=== PATIENT | female | born 1980 | race Caucasian/White ===

== ENCOUNTER 2018-05-10 17:51 | Emergency (ER) | payer BC ==
[2018-05-10 18:24] VITALS: BP 121/94; PULSE 104; RESP 16; TEMP 99.3; O2SAT 99
--- NOTE | 2018-05-10 18:30 | PD ---
HPI Chief Complaint: Headache Time Seen by Provider: 18:29 Travel History International Travel<30 days: No Contact w/Intl Traveler<30days: No Traveled to known affect area: No History of Present Illness HPI 37-year-old female presents emergency department for evaluation of a pain in the left posterior head. Patient states that it was there since yesterday. Is more of an ache. Mild in severity. It is not generalized. It is not associated with any nausea or vomiting. Patient states yesterday while in the shower she did have to sit down because she felt like the room was spinning, but this was brief and subsided on its own. It has not happened again. She is not certain if they are related. She does have history of cavernous angioma. She is followed by neurology and a specialist in [place]. She denies any focal deficits or weakness. She denies any visual changes. She has no other symptoms to report at this time. [facility] Past Medical History Headaches: Yes Social History Tobacco Use: No Allergies-Medications (Allergen,Severity, Reaction): Coded Allergies: No Known Allergies (Unverified , 05/10/18) Reported Meds & Prescriptions Reported Meds & Active Scripts Active Reported Zonegran (Zonisamide) 100 Mg Cap 200 Mg PO BID Lamictal (Lamotrigine) 25 Mg Tab 25 Mg PO BID Lamictal (Lamotrigine) 200 Mg Tab 200 Mg PO BID Review of Systems Except as stated in HPI: all other systems reviewed are Neg Physical Exam Narrative GENERAL: Well-nourished, well-developed female patient no acute distress SKIN: Focused skin assessment warm/dry. HEAD: Normocephalic. Atraumatic EYES: No scleral icterus. No injection or drainage. EOMI. Equal reactive to light NECK: Supple, trachea midline. No JVD or lymphadenopathy. CARDIOVASCULAR: Regular rate and rhythm without murmurs, gallops, or rubs. RESPIRATORY: Breath sounds equal bilaterally. No accessory muscle use. GASTROINTESTINAL: Abdomen soft, non-tender, nondistended. MUSCULOSKELETAL: No cyanosis, or edema. BACK: Nontender without obvious deformity. No CVA tenderness. NEUROLOGICAL: Awake and alert. Cranial nerves II through XII intact. Motor and sensory grossly within normal limits. Five out of 5 muscle strength in all muscle groups. Normal speech. Data Data Last Documented VS Vital Signs Date Time Temp Pulse Resp B/P (MAP) Pulse Ox O2 Delivery O2 Flow Rate FiO2 05/10/18 18:24 99.3 104 16 121/94 (103) [address] Brain W/O Iv Contrast(Rout) (05/10/18 ) Iv Access Insert/Monitor (05/10/18 18:51) Dexamethasone Inj (Decadron Inj) (05/10/18 19:00) Sodium Chlor 0.9% 1000 Ml Inj (Ns 1000 M (05/10/18 19:00) Prochlorperazine Inj (Compazine Inj) (05/10/18 19:00) Diphenhydramine Inj (Benadryl Inj) (05/10/18 19:00) Ed Discharge Order (05/10/18 20:09) [facility] Medical Decision Making Medical Screen Exam Complete: Yes Emergency Medical Condition: Yes Medical Record Reviewed: Yes Differential Diagnosis Headache, tension versus cluster versus migraine with or without aura versus intracranial hemorrhage versus neuralgia Narrative Course 37-year-old female presents emergency department for evaluation. Patient appears without distress. Her vital signs are stable. There are no focal deficits or weakness. Last Impressions Head CT 05/10/18 0000 Signed Impressions: CONCLUSION: 1. Small area of low-density left posterior parietal region and right frontopa rietal region which are stable from previous MRI and likely postsurgical as pat ient has had bilateral craniotomies. 2. No acute intracranial abnormality. I discussed the findings with my attending. She is also assessed the findings and the patient. Patient has been given Decadron, Compazine, Benadryl and IV normal saline bolus. Upon reassessment, her symptoms have resolved. She is ready to go home. I encouraged follow-up with her primary care provider. Patient will be discharged at this time. Diagnosis Primary Impression: Headache Qualified Codes: R51 - Headache Referrals: Neurologist Primary Care Physician Patient Instructions: Acute Headache (ED), General Instructions Additional Instructions: Follow up with your primary care provider Keep your appointment in [place] Return to ED with acute worsening of symptoms Med/Other Pt SpecificInfo: No Change to Meds Disposition: 01 DISCHARGE HOME Condition: Stable MayraCarlottaMeliaalecia OLEA May 10, 2018 18:30
[2018-05-10] MEDS ORDERED: LAMI200T PO (18:51)
[2018-05-10] MEDS ORDERED: LAMO25 PO (18:51)
[2018-05-10] MEDS ORDERED: ZONI1CAP17 PO (18:51)
[2018-05-10] MEDS ORDERED: diphenhydrAMINE HCL 50 MG/ML VIAL IV PUSH ONE (19:00)
[2018-05-10] MEDS ORDERED: DEXAMETHASONE SOD PHOS 4 MG/ML VIAL IV PUSH ONE (19:00)
[2018-05-10] MEDS ORDERED: SODIUM CHLOR 0.9% 1000 ML INJ 1,000 ML IV ONE (19:00)
[2018-05-10] MEDS ORDERED: PROCHLORPERAZINE INJ 10 MG/2 ML VIAL IV PUSH ONE (19:00)
--- NOTE | 2018-05-10 19:35 | RADRPT ---
EXAM DATE: 05/10/2018 7:28 PM EDT AGE/SEX: 37 years / Female INDICATIONS: Posterior headache since yesterday. CLINICAL DATA: This is the patient's initial encounter. Patient reports that signs and symptoms have been present for 1 day and indicates a pain score of 5/10. MEDICAL/SURGICAL HISTORY: . Cavernous hemangioma. None. RADIATION DOSE: 35.23 CTDI (mGy) COMPARISON: PO[facility], MR BRAIN W/O CONTRAST, 04/30/2015. . TECHNIQUE: CT of the head without contrast. Using automated exposure control and adjustment of the mA and/or kV according to patient size, radiation dose was kept as low as reasonably achievable to ob tain optimal diagnostic quality images. FINDINGS: Cerebrum: Small area of low-density in the left posterior parietal lobe parafalcine region measuring 1.6 cm with similar appearing lesion in the right frontoparietal region. The ventricles are normal f or age. No evidence of midline shift hemorrhage or acute infarction. No extraaxial fluid collection s are seen. Posterior Fossa: The cerebellum and brainstem are intact. The 4th ventricle is midline. The cerebe llopontine angle is unremarkable. Extracranial: The visualized portion of the orbits is intact. Skull: Previous bilateral craniotomies. CONCLUSION: 1. Small area of low-density left posterior parietal region and right frontoparietal region which ar e stable from previous MRI and likely postsurgical as patient has had bilateral craniotomies. 2. No acute intracranial abnormality. Electronically signed by: Tyrone Tobias MD 05/10/2018 7:33 PM EDT
== END 2018-05-10 20:31 | disposition home or self-care (01) ==
LOC: NEPE 17:51
DX: R51 Headache (principal); Z79.899 Other long term (current) drug therapy
CPT/HCPCS: 70450; 96374; 96375; 99284; J0780; J1100; J1200; J7030